=== PATIENT | female | born 1975 | race African-American/Black ===

== ENCOUNTER → 2025-01-04 | Day surgery (SDC) | payer OTHER ==
[~2025-01-04] MED LIST: DOCUSATE SODIU100 MG PO; FENTANYL CITRATE/PF 100MCG/2 ML INJ ONE; FOLIC ACID0.8 MG PO; HYOSCYAMINE SULFATE 0.5 MG/ML INJ ONE; HYOSCYAMINE0.125 M2 SL; LIDOCAINE HCL 2% LOCAL INJ 5 ML SDV VIAL INJ ONE; METFORMIN HCL1000 MG PO; MIDAZOLAM HCL 2 MG/2 ML VIAL ONE; NITROGLYCERIN0.4 MG SL; OMEGA-31000 MG PO; PROPOFOL IV EMULSION 50 ML IV ONE; TRULICITY3 MG/0.5 M SQ; VITAMIN C500 MG PO; VITAMIN E400 UNI1 PO; [UNRECOGNIZED DRUG - REMARK] PO
[2025-01-04] MEDS: LACTATED RINGER'S 1,000 ML ONE (11:27)
[2025-01-04] MEDS: INSULIN REGULAR, HUMAN 100 UNIT/1 ML ONE (12:06)
[2025-01-04 15:12] VITALS: TEMP 98.1
[2025-01-04 15:55] VITALS: BP 106/77; PULSE 73; RESP 18; O2SAT 98
== END | disposition home or self-care (01) ==
LOC: OR 10:55 → EDSEX 12:30
PROVIDERS: ATTEND Internal Medicine Gastroenterology
DX: Z12.11 Encounter for screening for malignant neoplasm of colon (principal); K29.50 Unspecified chronic gastritis without bleeding; B96.81 Helicobacter pylori [H. pylori] as the cause of diseases classified elsewhere; D3A.8 Other benign neuroendocrine tumors; K20.90 Esophagitis, unspecified without bleeding; K59.09 Other constipation; Z71.3 Dietary counseling and surveillance; K43.9 Ventral hernia without obstruction or gangrene; I25.10 Atherosclerotic heart disease of native coronary artery without angina pectoris; E11.9 Type 2 diabetes mellitus without complications; R05.9 Cough, unspecified; Z79.84 Long term (current) use of oral hypoglycemic drugs; Z79.85 Long-term (current) use of injectable non-insulin antidiabetic drugs; Z79.899 Other long term (current) drug therapy; Z68.33 Body mass index [BMI] 33.0-33.9, adult
CPT/HCPCS: 43239; 45380; 93005; J1980; J2003; J2250; J2470; J2704; J3010; J7121; 45378; 45385